=== PATIENT | female | born 1990 | race Caucasian/White ===

== ENCOUNTER 2016-10-13 22:26 | Emergency (ER) | payer OTHER ==
--- NOTE | ~2016-10-13 | ER ---
PATIENT'S NAME: NADYA LOUIS [facility] AGE: 26 Y [address] ROOM: [place] [id number] LOCATION: [facility] ADMIT DATE: 10/13/2016 ER/Outpatient Report DISCHARGE DATE: 10/13/2016 FAMILY PHYSICIAN: PHYSICIAN, NO ATTENDING PHYSICIAN: Narciso Pisano CHIEF COMPLAINT: Injuries from fall. TIME OF PATIENT ARRIVAL: 2226 hours. TIME OF PATIENT EVALUATION: 2240 hours. HISTORY OF PRESENT ILLNESS: This is a 26-year-old female, who presented to the ER. She states she was at work at [employer], when she slipped on the wet floor and hit her head on the floor and also her right knee. She states this happened approximately 20 minutes prior to arrival. She did not lose conscious. She denies any neck or back pain. She states her head is feeling better now, but her knee is kind of bothering her. She states she was able ambulate on her leg and she denies any other injury at this time. ALLERGIES: NO KNOWN ALLERGIES. MEDICATIONS: None. PAST MEDICAL HISTORY: Negative. PAST SURGERIES: None. SOCIAL HISTORY: Denies smoking, drug, or alcohol use. REVIEW OF SYSTEMS: All systems reviewed were negative with the exception of those discussed in the HPI. PHYSICAL EXAMINATION: VITAL SIGNS: Height 5 feet 3 inches, stated. Weight 95.1 kg, taken. Blood PATIENT'S NAME: NADYA LOUIS [facility] AGE: 26 Y [address] ROOM: [place] [address] LOCATION: [facility] ADMIT DATE: 10/13/2016 ER/Outpatient Report DISCHARGE DATE: 10/13/2016 FAMILY PHYSICIAN: PHYSICIAN, NO ATTENDING PHYSICIAN: Narciso Pisano pressure is 157/77; pulse 88; respirations 16; temperature 98.6 degrees, tympanically; and saturations 97% on room air. Tate Coma Score is 15. GENERAL: Alert, calm, well-developed female, in no acute distress. HEENT. Head is normocephalic. Eyes, pupils are equal and reactive to light. Ears, TMs display good light reflexes bilaterally. Nose, turbinates are pink with no drainage. Throat, no exudates or erythema. LUNGS: Clear to auscultation bilaterally. HEART: Regular rate and rhythm. EXTREMITIES: No clubbing or cyanosis. She does have decreased range of motion of her right knee secondary to pain. She does have pain with palpation just under the patella on the lateral side. She has no pain with palpation of the posterior portion. SKIN: She does have some ecchymosis noted to her right eyebrow. DIAGNOSTIC STUDIES: Lab: None. X-rays: Right knee injury. ASSESSMENT AND PLAN: The patient rests comfortably here in the entire stay. She states that she does have a knee brace at home that she will use. I advised her to ice and elevate the knee, take Tylenol and ibuprofen. She also may place ice over her contusion on her eyebrow. She should follow up with primary care physician for followup care. The patient understands and agrees with the care. NICOLASA GILMAN PA-C FOR MD BRITANY MCKINNON/kaela /[id number] d: 10/14/16 0133 t: 10/18/16 1233, OUTPATIENT REPORT
== END 2016-10-13 23:06 | disposition disaster alternative care site (69) ==
LOC: GACC 22:26
DX: S00.11XA Contusion of right eyelid and periocular area, initial encounter (principal); S89.91XA Unspecified injury of right lower leg, initial encounter; W01.0XXA Fall on same level from slipping, tripping and stumbling without subsequent striking against object, initial encounter; Y93.89 Activity, other specified; Y92.511 Restaurant or cafe as the place of occurrence of the external cause; Y99.0 Civilian activity done for income or pay